=== PATIENT | male | born 1990 | race African-American/Black ===

== ENCOUNTER 2023-07-21 11:21 | Emergency (ER) | payer SELFPAY ==
[2023-07-21] MEDS ORDERED: Ibuprofen 600 MG Tab PO ONE (12:20)
[2023-07-21] MEDS ORDERED: Acetaminophen 325 MG Tab PO ONE (12:20)
== END 2023-07-21 13:00 | disposition home or self-care (01) ==
LOC: LL.ED 11:21
DX: S49.92XA Unspecified injury of left shoulder and upper arm, initial encounter (principal); X58.XXXA Exposure to other specified factors, initial encounter
CPT/HCPCS: 73030-LT; 99283